=== PATIENT | male | born 1960 | race Two or more races ===

== ENCOUNTER 2020-03-06 10:46 | Inpatient (IN) | payer MEDICAID, OTHER ==
[~2020-03-06] VITALS: Ht 188 cm; Wt 139.0 kg
[2020-03-06] MEDS ORDERED: ATROPINE SULF 1 MG/10ml SYR ONE (11:04)
[2020-03-06] MEDS ORDERED: fentaNYL CITRATE 100 MCG/2 ML VL ONE ×2 (11:04→12:59)
[2020-03-06] MEDS ORDERED: ANGIOMAX 250 MG VIAL IV ONE ×2 (11:04→12:59)
[2020-03-06] MEDS ORDERED: EPINEPHrine HCL 1 MG/10 ML SYRG ONE (11:05)
[2020-03-06] MEDS ORDERED: SODIUM CHL 0.9% 0 ML ONE (11:05)
[2020-03-06] MEDS ORDERED: MIDAZOLAM HCL 1MG/1ML-2 ML VIAL ONE ×2 (11:05→12:59)
[2020-03-06] MEDS ORDERED: IOHEXOL 350 MG/ML 100ML IJ ONE (11:08)
[2020-03-06] MEDS ORDERED: LIDOCAINE 2%HCL (LOCAL ANESTH.) INJ 20ML MDV ONE (11:08)
[2020-03-06] MEDS ORDERED: ASPirin 81 mg TAB PO ONE (11:15)
[2020-03-06 11:30] LABS: Basophils # (auto) 0 10 ^3/uL (0-0.2); Basophils % (auto) 0.5 % (0.0-2.0); Eosinophils # (auto) 0.1 10 ^3/uL (0-0.8); Eosinophils % (auto) 0.6 % (0.0-7.0); Hematocrit 44.7 % (41.0-53.0); Hemoglobin 14.8 g/dL (13.5-17.5); Lymphocytes # (auto) 1.5 10 ^3/uL (0.4-5.4); Lymphocytes % (auto) 14.8 % (10.0-50.0); Mean Corpuscular Hemoglobin 29.7 pg (28.0-32.0); Mean Corpuscular Hgb Conc. 33.1 g/dL (32.0-36.0); Mean Corpuscular Volume 89.7 fL (80.0-100.0); Monocytes # (auto) 0.7 10 ^3/uL (0-1.3); Monocytes % (auto) 6.7 % (0.0-12.0); Neutrophils # (auto) 7.6 10 ^3/uL (1.6-8.6); Neutrophils % (auto) 77.4 % (37.0-80.0); Nucleated Red Blood Cells % 0.1 %; Platelet Count (auto) 183 10^3/uL (140-450); Red Blood Cells 4.98 10^6/uL (4.5-5.90); Red Cell Distribution Width 14.1 % (11.8-14.3); White Blood Cell 9.9 10^3/uL (4.4-10.8)
[2020-03-06 11:45] LABS: INR 1.01 (0.9-1.15); Partial Thromboplastin Time 25.7 sec (23.64-32.05)
[2020-03-06 11:50] LABS: Calcium 8.6 mg/dL (8.5-10.1); Potassium 4.1 mmol/L (3.5-5.1)
[2020-03-06 11:59] LABS: Albumin 3.9 g/dL (3.4-5.0); BUN/Creatinine Ratio 14.2; Bilirubin, Total 0.6 mg/dL (0.2-1.0); Magnesium 2.1 mg/dL (1.6-2.6); Total Protein 7.9 g/dL (6.4-8.2)
[2020-03-06] MEDS ORDERED: HEPARIN DRIP/D5W 100UNITS/ML 250 ML IV SCH (11:59)
[2020-03-06] MEDS ORDERED: METOPROLOL TARTRATE 1MG/1ML-5ML VIAL IV ONE (12:00)
[2020-03-06] MEDS ORDERED: HEPARIN SODIUM (PORCINE) 5000 UNITS/ML 1ML VIAL IV ONE (12:00)
[2020-03-06] MEDS ORDERED: ONDANSETRON HCL 4 MG/2 ML VIAL IV ONE (12:00)
[2020-03-06] MEDS ORDERED: MORPHINE SULF INJ 2 MG/ML SYRINGE 1ML IV PRN ×3 (12:00→14:00)
[2020-03-06] MEDS ORDERED: HEPARIN DRIP/D5W 100UNITS/ML 0 ML IV ONE (12:27)
[2020-03-06] MEDS ORDERED: SODIUM CHL 0.9% 50 ML ONE (12:59)
[2020-03-06] MEDS ORDERED: EPTIFIBATIDE INJ (2MG/ML) 10ML VIAL IV ONE (13:24)
[2020-03-06] MEDS ORDERED: HEPARIN SODIUM (PORCINE) 5000 UNITS/ML 1ML VIAL ONE (13:25)
[2020-03-06] MEDS ORDERED: TICAGRELOR 90 MG TAB ONE (13:38)
[2020-03-06] MEDS ORDERED: DEXTROSE (50%) 50ML SYRG IV PRN ×2 (14:00→15:15)
[2020-03-06] MEDS ORDERED: ONDANSETRON HCL 4 MG/2 ML VIAL IV PRN (14:00)
[2020-03-06] MEDS ORDERED: HYDROcodone-ACET 5/325MG TAB PO PRN (14:00)
[2020-03-06] MEDS ORDERED: hydrALAZINE HCL 20 MG/ML VL IV PRN (14:00)
[2020-03-06] MEDS ORDERED: NITROGLYCERIN 0.4 MG SL TAB SL PRN (14:00)
[2020-03-06] MEDS ORDERED: ACETAMINOPHEN 500 MG TAB PO PRN (14:00)
--- NOTE | 2020-03-06 15:30 | NUR ---
Report received from . [facility] brought to bed following Cardiac catheterization, on quality assurance monitor body and portable oxygen. Patient transfered to unit EAST 250 bed B, connected to classroom monitor # and oxygen. Catheterization site assessed for any bleeding, redness or swelling. device in place. Pedal pulses on affected leg assessed for positive tissue perfusion. Patient instructed on need to notify staff immediately if any pain, burning or wetness to site, and any lower back pain. Patient educated on new cardiac medications. All questions and concerns addressed, patient verbalized understanding of all education and instruction. See notes for any further. NOTE:
--- NOTE | 2020-03-06 15:45 | NUR ---
PATIENT ARRIVED ON UNIT FROM OLERICULTURIST Addendum: 03/06/20 at 1 by EDE WATSON RN RN CORRECTED TIME WAS 1520
[2020-03-06 16:00] VITALS: BP 135/69
--- NOTE | 2020-03-06 16:30 | NUR ---
S/P SURGICAL SITE NO NOTED SWELLING, BLEEDING, BRUISING, OR CLOTS. DRESSING CDI.
[2020-03-06 16:56] VITALS: BP 135/69
[2020-03-06] MEDS ORDERED: ACCU-CHEK COMFORT CURVE STRIP VI SCH (17:00)
[2020-03-06] MEDS ORDERED: InsuLIN REG 1unit/0.01ml Soln (100units/ml) SC SCH ×2 (17:00→22:00)
--- NOTE | 2020-03-06 17:25 | NUR ---
NO NOTED SWELLING, BLEEDING, BRUISING, OR CLOTS. DRESSING C/D/I
[2020-03-06] MEDS: ACCU-CHEK COMFORT CURVE STRIP VI SCH ×2 (17:28→22:29)
[2020-03-06] MEDS: InsuLIN REG 1unit/0.01ml Soln (100units/ml) SC SCH (17:28)
--- NOTE | 2020-03-06 18:30 | NUR ---
NO NOTED SWELLING, BLEEDING, BRUISING, OR CLOTS. DRESSING CDI
--- NOTE | 2020-03-06 19:00 | NUR ---
SHIFT REPORT GAVE SHIFT REPORT TO NOC SG GANNON. PATIENT RESTING WELL AND NO NOTED S/S OF DISTRESS.
--- NOTE | 2020-03-06 19:30 | NUR ---
Opening Shift Note Assumed care of patient after receiving report from day shift RN. Patient awake and A&O x4, resting in bed comfortably. No S/S of distress/SOB noted. Patient denies pain at this time. Dressing to right groin C/D/I, and soft to touch. Pulses to right foot palpable and warm to touch. Bed locked and left in the lowest position with the side rails up x2 and call light left within reach. Instructed on POC and to call for assist PRN, will continue to monitor for changes Q1hr and PRN.
[2020-03-06] MEDS ORDERED: ATORVASTATIN 20 MG TAB PO SCH (22:00)
[2020-03-06] MEDS: TICAGRELOR 90 MG TAB PO SCH (22:27)
[2020-03-06] MEDS: METOPROLOL TARTRATE 25 MG TAB PO SCH (22:27)
--- NOTE | 2020-03-06 22:39 | NUR ---
PAIN PATIENT C/O PAIN TO RIGHT GROIN 6/10 ON A NUMERICAL SCALE. WILL MEDICATE PER MD ORDERS.
[2020-03-06 22:53] VITALS: BP 148/80
--- NOTE | 2020-03-06 23:39 | NUR ---
PAIN REASSESSMENT PATIENT RESTING IN BED COMFORTABLY, DENIES PAIN AT THIS TIME. NO FURTHER INTERVENTIONS NEEDED.
[2020-03-07 05:50] LABS: Basophils # (auto) 0 10 ^3/uL (0-0.2); Basophils % (auto) 0.6 % (0.0-2.0); Eosinophils # (auto) 0.1 10 ^3/uL (0-0.8); Eosinophils % (auto) 1.3 % (0.0-7.0); Hematocrit 41.2 % (41.0-53.0); Hemoglobin 13.7 g/dL (13.5-17.5); Lymphocytes # (auto) 1.8 10 ^3/uL (0.4-5.4); Lymphocytes % (auto) 23.2 % (10.0-50.0); Mean Corpuscular Hemoglobin 29.8 pg (28.0-32.0); Mean Corpuscular Hgb Conc. 33.2 g/dL (32.0-36.0); Mean Corpuscular Volume 89.7 fL (80.0-100.0); Monocytes # (auto) 0.7 10 ^3/uL (0-1.3); Monocytes % (auto) 8.8 % (0.0-12.0); Neutrophils # (auto) 5.1 10 ^3/uL (1.6-8.6); Neutrophils % (auto) 66.1 % (37.0-80.0); Nucleated Red Blood Cells % 0.1 %; Platelet Count (auto) 173 10^3/uL (140-450); Red Blood Cells 4.59 10^6/uL (4.5-5.90); Red Cell Distribution Width 13.8 % (11.8-14.3); White Blood Cell 7.7 10^3/uL (4.4-10.8)
[2020-03-07 05:54] VITALS: BP 121/65
[2020-03-07 06:06] LABS: INR 1.04 (0.9-1.15); Partial Thromboplastin Time 26.6 sec (23.64-32.05)
[2020-03-07 06:11] LABS: Calcium 8.4 mg/dL (8.5-10.1); Potassium 4.2 mmol/L (3.5-5.1)
[2020-03-07 06:14] LABS: BUN/Creatinine Ratio 16.5
[2020-03-07] MEDS: ACCU-CHEK COMFORT CURVE STRIP VI SCH ×3 (06:54→17:50)
[2020-03-07] MEDS: InsuLIN REG 1unit/0.01ml Soln (100units/ml) SC SCH ×3 (06:54→17:50)
[2020-03-07 08:00] VITALS: BP 117/69
[2020-03-07 09:00] VITALS: BP 117/69
[2020-03-07] MEDS ORDERED: LISINOPRIL 10 MG TAB PO SCH (10:00)
[2020-03-07] MEDS: METOPROLOL TARTRATE 25 MG TAB PO SCH (10:00)
[2020-03-07] MEDS ORDERED: ASPirin-EC 81 mg tab PO SCH (10:00)
[2020-03-07] MEDS: TICAGRELOR 90 MG TAB PO SCH (10:03)
[2020-03-07 11:25] LABS: Cholesterol 191 mg/dL (< 200)
--- NOTE | 2020-03-07 11:26 | NUR ---
DR HADLEY BEDSIDE WITH PATIENT.
[2020-03-07 11:28] LABS: HDL Cholesterol 27 mg/dL (40-59); LDL Cholesterol 128 mg/dL (< 100); Triglycerides 195 mg/dL (< 150)
[2020-03-07] MEDS ORDERED: OPTISON 3ml Vial for INJ IV ONE (11:33)
--- NOTE | 2020-03-07 12:30 | NUR ---
SPOKE TO MARIA D AT PATIENTS PCP FOR REFERRAL TO [facility] (DR HENRY). REFERRAL # [id number]. APPOINTMENT MADE FOR MARCH 11 AT 11:00. PATIENT INFORMED
[2020-03-07] MEDS ORDERED: ASPI-394 PO (12:54)
[2020-03-07] MEDS ORDERED: INSU1INJ19 SC (12:54)
[2020-03-07] MEDS ORDERED: METF-372 PO (12:54)
[2020-03-07] MEDS ORDERED: LISI-648 PO (12:54)
[2020-03-07] MEDS ORDERED: MET25T PO (12:54)
[2020-03-07] MEDS ORDERED: TICA90TA PO (12:54)
[2020-03-07] MEDS ORDERED: ERTU15TA PO (12:54)
[2020-03-07] MEDS ORDERED: ATOR20TA50 PO (12:54)
[2020-03-07 13:00] VITALS: BP 128/69
[2020-03-07 16:47] VITALS: BP 125/66
[2020-03-07 17:12] VITALS: BP 125/66
--- NOTE | 2020-03-07 18:40 | NUR ---
Discharge instructions given as ordered. Encourage to follow up with PMD as instructed in 2-3 days, and follow up with [facility], Dr Carter in 3 weeks. Phone numbers provided for patient to make follow up appts. Patient has appt w/ Dr Garcia, March 11 at 11:00. All questions and concerns addressed. Patient verbalized understanding. Medication reconciliation form completed and copy given to patient. No home medications being held in Pharmacy and no vaccines given, as patient refused. Both IVs removed with catheter intact and pressure dressing applied. Telemetry unit returned to ICU. Patient taken to vehicle via wheelchair with all personal belongings, accompanied by staff member. No distress noted at time of departure.
== END 2020-03-07 18:40 | disposition home or self-care (01) | DRG 174 ==
LOC: ER 10:46 → EDBD 10:46 → TELE-EAST 15:59
PROVIDERS: ADMIT Nurse Practitioner Acute Care; ATTEND Internal Medicine
PROC: B2111ZZ Fluoroscopy of Multiple Coronary Arteries using Low Osmolar Contrast (ICD-10-PCS; principal; 2020-03-06)
PROC: 027034Z Dilation of Coronary Artery, One Artery with Drug-eluting Intraluminal Device, Percutaneous Approach (ICD-10-PCS; 2020-03-06)
DX: I21.3 ST elevation (STEMI) myocardial infarction of unspecified site (principal); E11.22 Type 2 diabetes mellitus with diabetic chronic kidney disease; E11.621 Type 2 diabetes mellitus with foot ulcer; N18.3 Chronic kidney disease, stage 3 (moderate); I12.9 Hypertensive chronic kidney disease with stage 1 through stage 4 chronic kidney disease, or unspecified chronic kidney disease; E11.65 Type 2 diabetes mellitus with hyperglycemia; E66.9 Obesity, unspecified; E78.5 Hyperlipidemia, unspecified; Z68.35 Body mass index [BMI] 35.0-35.9, adult; Z79.4 Long term (current) use of insulin; L97.529 Non-pressure chronic ulcer of other part of left foot with unspecified severity
CPT/HCPCS: 36415; 71045; 80048; 80053; 80061; 82962; 83036; 83735; 84443; 84484; 85025; 85610; 85730; 92928; 93005; 93306; 93454; 93925; 96374; 96375; 99152; 99153; C1874; G0378; J1815; J2250; J2405; Q9956

== ENCOUNTER → 2020-07-25 | Outpatient (CLI) | payer MEDICAID ==
[~2020-07-25] MED LIST: ASPI-394 PO; ATOR20TA50 PO; ERTU15TA PO; INSU1INJ19 SC; LISI-648 PO; MET25T PO; METF-372 PO; TICA90TA PO
== END | disposition home or self-care (01) ==
LOC: Rad HDHVI 10:11
PROVIDERS: ATTEND Internal Medicine
DX: I07.1 Rheumatic tricuspid insufficiency (principal); I25.10 Atherosclerotic heart disease of native coronary artery without angina pectoris; I42.9 Cardiomyopathy, unspecified; I25.2 Old myocardial infarction
CPT/HCPCS: 93306

== ENCOUNTER → 2020-12-31 | Outpatient (CLI) | payer MEDICAID ==
[~2020-12-31] VITALS: Ht 188 cm; Wt 127.5 kg
[~2020-12-31] MED LIST changes: +ADENOSINE 107 MG in GIVE UN-DILUTED 0 ML IV ONE; +ADENOSINE 90 MG/30 ML INJ IV ONE
== END | disposition home or self-care (01) ==
LOC: Rad HDHVI 12:58
PROVIDERS: ATTEND Internal Medicine Cardiovascular Disease
DX: I25.10 Atherosclerotic heart disease of native coronary artery without angina pectoris (principal); I10 Essential (primary) hypertension; E78.00 Pure hypercholesterolemia, unspecified; E11.9 Type 2 diabetes mellitus without complications; R07.9 Chest pain, unspecified; Z82.49 Family history of ischemic heart disease and other diseases of the circulatory system
CPT/HCPCS: 78452; 93005; 96374; 96375; A9500; J0153

== ENCOUNTER → 2021-06-27 | Outpatient (CLI) | payer MEDICAID ==
[~2021-06-27] MED LIST changes: -ADENOSINE 107 MG in GIVE UN-DILUTED 0 ML IV ONE; -ADENOSINE 90 MG/30 ML INJ IV ONE; +IOHEXOL 350 MG/ML 100ML IJ ONE; -LISI-648 PO; +LISI-716 PO; +METOPROLOL TARTRATE 1MG/1ML-5ML VIAL IV ONE; +NITROGLYCERIN 0.4 MG SL TAB SL ONE
[2021-06-27 09:03] VITALS: BP 121/70
[2021-06-27 10:00] VITALS: BP 129/54
== END | disposition home or self-care (01) ==
LOC: Rad HDHVI 08:52
PROVIDERS: ATTEND Internal Medicine
DX: I25.10 Atherosclerotic heart disease of native coronary artery without angina pectoris (principal)
CPT/HCPCS: 75571; 96374; G0463; Q9967

== ENCOUNTER → 2021-08-14 | Outpatient (CLI) | payer MEDICAID ==
[~2021-08-14] MED LIST changes: -IOHEXOL 350 MG/ML 100ML IJ ONE; -METOPROLOL TARTRATE 1MG/1ML-5ML VIAL IV ONE; -NITROGLYCERIN 0.4 MG SL TAB SL ONE
== END | disposition home or self-care (01) ==
LOC: XYW 09:01
PROVIDERS: ATTEND Podiatrist
DX: I70.203 Unspecified atherosclerosis of native arteries of extremities, bilateral legs (principal); I77.9 Disorder of arteries and arterioles, unspecified
CPT/HCPCS: 93925

== ENCOUNTER → 2021-12-16 | Outpatient (CLI) | payer MEDICAID | END | disposition home or self-care (01) | LOC: Rad HDHVI 08:00 | PROVIDERS: ATTEND Internal Medicine | DX: I08.2 Rheumatic disorders of both aortic and tricuspid valves (principal); I11.9 Hypertensive heart disease without heart failure; E78.5 Hyperlipidemia, unspecified | CPT/HCPCS: 93306 ==

== ENCOUNTER → 2022-09-15 | Outpatient (CLI) | payer MEDICAID ==
[~2022-09-15] VITALS: Ht 188 cm; Wt 127.0 kg
[~2022-09-15] MED LIST changes: +ADENOSINE 107 MG in GIVE UN-DILUTED 0 ML IV ONE; +ADENOSINE 90 MG/30 ML INJ IV ONE
== END | disposition home or self-care (01) ==
LOC: Rad HDHVI 08:03
PROVIDERS: ATTEND Internal Medicine
DX: I25.10 Atherosclerotic heart disease of native coronary artery without angina pectoris (principal); E78.5 Hyperlipidemia, unspecified; E11.9 Type 2 diabetes mellitus without complications; I11.0 Hypertensive heart disease with heart failure; I50.9 Heart failure, unspecified; I42.7 Cardiomyopathy due to drug and external agent; I25.2 Old myocardial infarction; R06.02 Shortness of breath; Z82.49 Family history of ischemic heart disease and other diseases of the circulatory system; Z95.5 Presence of coronary angioplasty implant and graft
CPT/HCPCS: 78452; 93005; 96374; 96375; A9500; J0153

== ENCOUNTER → 2022-10-26 | Outpatient (CLI) | payer MEDICAID ==
[~2022-10-26] MED LIST changes: -ADENOSINE 107 MG in GIVE UN-DILUTED 0 ML IV ONE; -ADENOSINE 90 MG/30 ML INJ IV ONE; +DULA0.5I SC; +METO-158 PO; +SACU1TAB7 PO
[2022-10-26 11:29] VITALS: BP 111/58
[2022-10-26 11:42] VITALS: BP 126/64
[2022-10-26 12:19] LABS: Basophils # (auto) 0.1 10 ^3/uL (0-0.2); Basophils % (auto) 0.8 % (0.0-2.0); Eosinophils # (auto) 0.3 10 ^3/uL (0-0.8); Eosinophils % (auto) 3.1 % (0.0-7.0); Hematocrit 45.7 % (41.0-53.0); Hemoglobin 14.8 g/dL (13.5-17.5); Lymphocytes # (auto) 1.7 10 ^3/uL (0.4-5.4); Lymphocytes % (auto) 20.5 % (10.0-50.0); Mean Corpuscular Hemoglobin 29.7 pg (28.0-32.0); Mean Corpuscular Hgb Conc. 32.4 g/dL (32.0-36.0); Mean Corpuscular Volume 91.6 fL (80.0-100.0); Monocytes # (auto) 0.8 10 ^3/uL (0-1.3); Neutrophils # (auto) 5.6 10 ^3/uL (1.6-8.6); Neutrophils % (auto) 66.6 % (37.0-80.0); Red Blood Cells 4.99 10^6/uL (4.5-5.90); Red Cell Distribution Width 14.9 % (11.8-14.3); White Blood Cell 8.5 10^3/uL (4.4-10.8)
[2022-10-26 12:27] LABS: Potassium 4.5 mmol/L (3.5-5.1)
[2022-10-26 12:32] LABS: BUN/Creatinine Ratio 17.9
[2022-10-26 12:37] LABS: INR 0.97 (0.9-1.15); Partial Thromboplastin Time 27.6 sec (24.6-33.4)
== END | disposition home or self-care (01) ==
LOC: Rad HDHVI 11:05
PROVIDERS: ATTEND Internal Medicine
DX: R06.02 Shortness of breath (principal)
CPT/HCPCS: 36415; 71046; 80048; 85025; 85610; 85730; 93005; G0463

== ENCOUNTER 2022-10-28 07:01 | Day surgery (SDC) | payer MEDICAID ==
[~2022-10-28] VITALS: Ht 188 cm; Wt 127.0 kg
[~2022-10-28 07:01] MED LIST changes: -MET25T PO
[2022-10-28] MEDS ORDERED: VERAPAMIL 2.5MG/ML INJ 2ML VIAL IV ONE (08:44)
[2022-10-28] MEDS ORDERED: HEPARIN SODIUM (PORCINE) 5000 UNITS/ML 1ML VIAL ONE (08:44)
[2022-10-28] MEDS ORDERED: fentaNYL CITRATE 100 MCG/2 ML VL ONE (08:45)
[2022-10-28] MEDS ORDERED: MIDAZOLAM HCL 2MG/2ML 2ml VIAL (1mg/ml) ONE (08:45)
[2022-10-28] MEDS ORDERED: SODIUM CHL 0.9% 50 ML ONE (08:50)
[2022-10-28] MEDS ORDERED: ANGIOMAX 250 MG VIAL IV ONE (08:50)
[2022-10-28] MEDS ORDERED: IODIXANOL 320MG/ML 100ML BTL IV ONE (09:43)
[2022-10-28] MEDS ORDERED: ASPirin 81 mg TAB ONE (09:54)
[2022-10-28] MEDS ORDERED: TICAGRELOR 90 MG TAB ONE (09:54)
[2022-10-28] MEDS ORDERED: INSU1INJ19 SC (10:23)
[2022-10-28] MEDS ORDERED: ASPI1TAB19 PO (10:23)
[2022-10-28] MEDS ORDERED: LISI-716 PO (10:23)
[2022-10-28] MEDS ORDERED: ERTU15TA PO (10:23)
[2022-10-28] MEDS ORDERED: METF-372 PO (10:23)
[2022-10-28] MEDS ORDERED: ATO40T PO (10:23)
[2022-10-28] MEDS ORDERED: TICA90TA PO (10:25)
== END 2022-10-28 12:06 | disposition home or self-care (01) ==
LOC: CATH 07:01
PROVIDERS: ATTEND Internal Medicine
DX: I25.10 Atherosclerotic heart disease of native coronary artery without angina pectoris (principal); Z20.822 Contact with and (suspected) exposure to COVID-19
CPT/HCPCS: 93458; C1726; C1769; C1874; C1887; C1894; C9600; J0583; J1644; J2001; J2250; J3010; Q9967; U0003; 99152